=== PATIENT | female | born 1990 | race African-American/Black ===

== ENCOUNTER 2017-02-28 22:09 | Emergency (ER) | payer SELFPAY ==
[~2017-02-28] VITALS: Ht 162.6 cm; Wt 75.0 kg
[~2017-02-28 22:09] MED LIST: IBUP600 PO; PREN1CAP3 PO
[2017-02-28 22:10] VITALS: BP 127/63; PULSE 90; RESP 16; TEMP 99.8; O2SAT 100
--- NOTE | 2017-02-28 23:15 | PD ---
HPI Chief Complaint: Fever Time Seen by Provider: 23:15 Travel History International Travel<30 days: No Contact w/Intl Traveler<30days: No Traveled to known affect area: No History of Present Illness HPI 26-year-old female came to the emergency room with history of fever, nausea and vomiting since this morning. Patient says she vomited 6-7 times. The last vomitus was half an hour ago before coming to the hospital. No history of diarrhea. Her temperature in triage was 99. Patient did not take any antipyretics before coming in. She is otherwise a healthy person. FORMERLY [facility], [facility] Past Medical History Narrative Medical List of her past medical, surgical, social and family history is reviewed from the nursing note. Medical History: Denies Significant Hx Diminished Hearing: No Immunizations Current: Yes Tetanus Vaccination: < 5 Years Influenza Vaccination: Yes ?: Not LMP: 02/28/17 : 2 Para: 2 Miscarriage: 0 : 0 Past Surgical History Surgical History: No Previous Surgery Social History Alcohol Use: Yes ([facility]) Tobacco Use: Yes Substance Use: No Allergies-Medications (Allergen,Severity, Reaction): Uncoded Allergies: CITRUS FRUIT (Allergy, Severe, ANAPHYLAXIS, 08/07/09) Comments List of her allergies reviewed from the nursing note. Reported Meds & Prescriptions Reported Meds & Active Scripts Active Zofran Odt (Ondansetron Odt) 4 Mg Tab 4 Mg SL Q6HR PRN Macrobid (Nitrofurantoin Monoh/Nitrofur Macro) 100 Mg Cap 100 Mg PO BID 10 Days Narrative Medication List of her home medications reviewed from the nursing note. Review of Systems Except as stated in HPI: all other systems reviewed are Neg Physical Exam Narrative GENERAL: Awake, alert, moderate distress SKIN: Focused skin assessment warm/dry. HEAD: Atraumatic. Normocephalic. EYES: Pupils equal and round. No scleral icterus. No injection or drainage. ENT: No nasal bleeding or discharge. Mucous membranes pink and moist. NECK: Trachea midline. No JVD. CARDIOVASCULAR: Regular rate and rhythm. No murmur appreciated. RESPIRATORY: No accessory muscle use. Clear to auscultation. Breath sounds equal bilaterally. GASTROINTESTINAL: Abdomen soft, non-tender, nondistended. Hepatic and splenic margins not palpable. MUSCULOSKELETAL: No obvious deformities. No clubbing. No cyanosis. No edema. NEUROLOGICAL: Awake and alert. No obvious cranial nerve deficits. Motor grossly within normal limits. Normal speech. PSYCHIATRIC: Appropriate mood and affect; insight and judgment normal. Data Data Last Documented VS Vital Signs Date Time Temp Pulse Resp B/P Pulse Ox O2 Delivery O2 Flow Rate FiO2 03/01/17 00:45 Room Air 02/28/17 23:16 97 02/28/17 22:10 99.8 90 16 127/63 Orders Complete Blood Count With Diff (02/28/17 23:18) Comprehensive Metabolic Panel (02/28/17 23:18) Lipase (02/28/17 23:18) Urinalysis - C+S If Indicated (02/28/17 23:18) Iv Access Insert/Monitor (02/28/17:18) Ecg Monitoring (02/28/17:18) Oximetry (02/28/17 23:18) Ondansetron Inj (Zofran Inj) (02/28/17 23:30) Sodium Chlor 0.9% 1000 Ml Inj (Ns 1000 M (02/28/17 23:18) Sodium Chloride 0.9% Flush (Ns Flush) (02/28/17 23:30) Ed Urine Pregnancytest Poc (02/28/17 23:18) Urine Culture (02/28/17 23:43) Nitrofurantoin Monohyd Macrocr (Macrobid (03/01/17 00:15) Labs Laboratory Tests Test 02/28/17 23:43 White Blood Count 9.8 TH/MM3 Red Blood Count 5.19 MIL/MM3 Hemoglobin 9.6 GM/DL Hematocrit 31.3 % Mean Corpuscular Volume 60.2 FL Mean Corpuscular Hemoglobin 18.5 PG Mean Corpuscular Hemoglobin 30.8 % Concent Red Cell Distribution Width 17.9 % Platelet Count 336 TH/MM3 Mean Platelet Volume 9.8 FL Neutrophils (%) (Auto) 80.4 % Lymphocytes (%) (Auto) 13.6 % Monocytes (%) (Auto) 5.4 % Eosinophils (%) (Auto) 0.2 % Basophils (%) (Auto) 0.4 % Neutrophils # (Auto) 7.9 TH/MM3 Lymphocytes # (Auto) 1.3 TH/MM3 Monocytes # (Auto) 0.5 TH/MM3 Eosinophils # (Auto) 0.0 TH/MM3 Basophils # (Auto) 0.0 TH/MM3 CBC Comment DIFF FINAL Differential Comment Urine Color YELLOW Urine Turbidity HAZY Urine pH 6.0 Urine Specific [place] 1.032 Urine Protein 30 mg/dL Urine Glucose (UA) NEG mg/dL Urine Ketones 40 mg/dL Urine Occult Blood NEG Urine Nitrite NEG Urine Bilirubin NEG Urine Urobilinogen 2.0 MG/DL Urine Leukocyte Esterase LARGE Urine RBC 3 /hpf Urine WBC 23 /hpf Urine Squamous Epithelial 8 /hpf Cells Urine Transitional Epithelial <1 /hpf Cells Urine Mucus MANY /lpf Microscopic Urinalysis Comment CULTURE INDICATED Sodium Level 135 MEQ/L Potassium Level 3.6 MEQ/L Chloride Level 104 MEQ/L Carbon Dioxide Level 21.4 MEQ/L Anion Gap 10 MEQ/L Blood Urea Nitrogen 11 MG/DL Creatinine 0.87 MG/DL Estimat Glomerular Filtration 96 ML/MIN Rate Random Glucose 102 MG/DL Calcium Level 8.5 MG/DL Total Bilirubin 0.4 MG/DL Aspartate Amino Transf 18 U/L (AST/SGOT) Alanine Aminotransferase 16 U/L (ALT/SGPT) Alkaline Phosphatase 75 U/L Total Protein 8.0 GM/DL Albumin 3.5 GM/DL Lipase 92 U/L [facility] Medical Decision Making Medical Screen Exam Complete: Yes Emergency Medical Condition: Yes Medical Record Reviewed: Yes Differential Diagnosis Acute gastritis, viral illness, UTI, dehydration Narrative Course 12:50 AM the test results of back and they are within acceptable limits. UA is positive for UTI. Patient was given IV fluid bolus and IV Zofran. I have given her by mouth Macrobid as well. She will be discharged home on prescription for Zofran and Macrobid. Procedures EKG Prior to Arrival: No Diagnosis Primary Impression: UTI (urinary tract infection) Qualified Code: N39.0 - Urinary tract infection without hematuria, site unspecified Additional Impression: Vomiting Qualified Code: R11.2 - Nausea and vomiting, intractability of vomiting not specified, unspecified vomiting type Referrals: Primary Care Physician Additional Instructions: Please return to the ER if the condition worsens or any other new concerns. Otherwise follow-up with your primary care in couple days. Take the medications as per the prescription direction. Drink lots of fluid to keep yourself hydrated. Med/Other Pt SpecificInfo: Prescription(s) given Scripts Ondansetron Odt (Zofran Odt)4 Mg Tab4 Mg SL Q6HR PRN (Nausea/Vomiting) #15 TAB Ref 0 Prov:Jose Elias Foss MD 03/01/17 Nitrofurantoin Monohydrate Macrocrystals (Macrobid)100 Mg [id number] Mg PO BID 10 Days Ref 0 Prov:Jose Elias Foss MD 03/01/17 Disposition: 01 DISCHARGE HOME Condition: Stable Jose Elias Foss MD Feb 28, 2017 23:15 Jose Elias Foss MD Feb 28, 2017 23:15
[2017-02-28] MEDS ORDERED: SODIUM CHLOR 0.9% 1000 ML INJ 1,000 ML IV SCH (23:18)
[2017-02-28] MEDS ORDERED: ONDANSETRON HCL 4 MG/2 ML VIAL IVP ONE (23:30)
[2017-02-28] MEDS ORDERED: SODIUM CHLORIDE 0.9% FLUSH 10 ML FLUSH IV FLUSH PRN (23:30)
[2017-02-28 23:55] LABS: AUTOMATED NEUTROPHIL # 7.9 TH/MM3 (1.8-7.7); BASOPHIL % 0.4 % (0.0-2.0); EOSINOPHIL % 0.2 % (0.0-4.0); HEMATOCRIT 31.3 % (35.0-46.0); HEMO FLAGS DIFF FINAL; LYMPH % 13.6 % (9.0-44.0); LYMPHOCYTE # 1.3 TH/MM3 (1.0-4.8); MEAN CELL VOLUME 60.2 FL (80.0-100.0); MEAN CORPUSCULAR HEMOGLOBIN 18.5 PG (27.0-34.0); MEAN CORPUSCULAR HGB CONC 30.8 % (32.0-36.0); MONO % 5.4 % (0.0-8.0); NEUT % 80.4 % (16.0-70.0); PLATELET COUNT 336 TH/MM3 (150-450); RED BLOOD COUNT 5.19 MIL/MM3 (4.00-5.30); RED CELL DISTRIBUTION WIDTH 17.9 % (11.6-17.2); WHITE BLOOD COUNT 9.8 TH/MM3 (4.0-11.0)
[2017-02-28 23:56] LABS: BLOOD, URINE NEG (NEG); COMMENT (UR) CULTURE INDICATED; CULTURE IF INDICATED CULTURE INDICATED; GLUCOSE,URINE NEG (NEG); KETONE, URINE 40 mg/dL (NEG); MUCUS URINE MANY /lpf (OCC); NITRITE,URINE NEG (NEG); SQUAMOUS EPITHELIAL CELL URINE 8 /hpf (0-5); TRANSITIONAL EPI CELLS, URINE <1 /hpf; URINE COLOR YELLOW (YELLW/STRAW)
[2017-03-01 00:07] LABS: ANION GAP 10 MEQ/L (5-15); AST (GOT) 18 U/L (15-37); BICARBONATE 21.4 MEQ/L (21.0-32.0); BLOOD UREA NITROGEN 11 MG/DL (7-18); CHLORIDE 104 MEQ/L (98-107); GLOMERULAR FILTRATION RATE 96 ML/MIN (>89); POTASSIUM 3.6 MEQ/L (3.5-5.1); SODIUM (NA) 135 MEQ/L (136-145)
[2017-03-01 00:09] LABS: ALT (GPT) 16 U/L (10-53)
[2017-03-01 00:12] LABS: ALKALINE PHOSPHATASE 75 U/L (45-117); TOTAL BILIRUBIN ADULT 0.4 MG/DL (0.2-1.0)
[2017-03-01] MEDS ORDERED: NITROFURANTOIN MONOHYD MACROCR 100 MG CAP PO ONE (00:15)
[2017-03-01] MEDS ORDERED: MACR100C2 PO (00:52)
[2017-03-01] MEDS ORDERED: ZOFR4TAB3 SL (00:52)
== END 2017-03-01 02:18 | disposition home or self-care (01) ==
LOC: NEPE 22:09
DX: N39.0 Urinary tract infection, site not specified (principal); R11.2 Nausea with vomiting, unspecified; Z79.899 Other long term (current) drug therapy; Z72.0 Tobacco use
CPT/HCPCS: 80053; 81001; 83690; 84703; 85025; 87086; 96361; 96374; 99284; J2405; J7030

== ENCOUNTER 2017-03-18 19:08 | Emergency (ER) | payer SELFPAY ==
[~2017-03-18 19:08] MED LIST changes: -IBUP600 PO; +MACR100C2 PO; -PREN1CAP3 PO; +ZOFR4TAB3 SL
[2017-03-18 19:09] VITALS: BP 116/55; PULSE 93; RESP 15; TEMP 101; O2SAT 98
[2017-03-18] MEDS ORDERED: PENI500T PO (19:52)
--- NOTE | 2017-03-18 19:53 | PD ---
HPI Chief Complaint: ENT Complaint Time Seen by Provider: 19:49 Travel History International Travel<30 days: No Contact w/Intl Traveler<30days: No Traveled to known affect area: No History of Present Illness HPI 26-year-old female presents to the emergency department for evaluation of sore throat and fever that started yesterday morning. Her daughter was seen here pediatrics and was diagnosed with strep pharyngitis. She has the same symptoms. The patient has not taken anything for her fever. She denies any chest or shortness of breath. No abdominal pain. No diarrhea. She reports no chronic medical problems and takes no prescribed medications. Patient has no other complaints at this time. [facility] Past Medical History Medical History: Denies Significant Hx Diminished Hearing: No Immunizations Current: Yes ?: Not : 2 Para: 2 Miscarriage: 0 : 0 Past Surgical History Surgical History: No Previous Surgery Social History Alcohol Use: Yes (OCC) Tobacco Use: Yes Substance Use: No Allergies-Medications (Allergen,Severity, Reaction): Uncoded Allergies: CITRUS FRUIT (Allergy, Severe, ANAPHYLAXIS, 08/07/09) Reported Meds & Prescriptions Reported Meds & Active Scripts Active Review of Systems Except as stated in HPI: all other systems reviewed are Neg Physical Exam Narrative GENERAL: Well-nourished, well-developed female patient, ambulatory. Afebrile. SKIN: Focused skin assessment warm/dry. HEAD: Normocephalic. Atraumatic. ENT: Mucosa pink and moist. Bilateral tonsils are erythematous with exudates. No uvular edema. No uvular, palatal, or tonsillar deviation. Airway patent. Nasal turbinates appear normal without nasal blood, purulent drainage or septal hematoma. Bilateral tympanic membranes are clear without erythema or perforation. EYES: No scleral icterus. No injection or drainage. NECK: Supple, trachea midline. No JVD or lymphadenopathy. CARDIOVASCULAR: Regular rate and rhythm without murmurs, gallops, or rubs. RESPIRATORY: Breath sounds equal bilaterally. No accessory muscle use. Lungs sounds are clear to auscultation. GASTROINTESTINAL: Abdomen soft, non-tender, nondistended. MUSCULOSKELETAL: No cyanosis, or edema. BACK: Nontender without obvious deformity. No CVA tenderness. Data Data Last Documented VS Vital Signs Date Time Temp Pulse Resp B/P Pulse Ox O2 Delivery O2 Flow Rate FiO2 03/18/17 19:09 101.0 93 15 116/55 98 Room Air [facility] Medical Decision Making Medical Screen Exam Complete: Yes Emergency Medical Condition: Yes Medical Record Reviewed: Yes Differential Diagnosis Strep pharyngitis versus viral pharyngitis versus URI Narrative Course 26-year-old female presents to the emergency department for evaluation of sore throat and fever that started yesterday morning. Her daughter was just seen in pediatrics and diagnosed with strep pharyngitis. She has the same symptoms. Patient is given ibuprofen 600 mg by mouth and Pen-Vee K 500 mg by mouth tablet. She will be discharged prescription for pen VK. She is instructed to take Tylenol and ibuprofen [id number] as needed and to warm somewhat water gargles. She is to follow-up with a primary care physician or return for any acute worsening of symptoms. Patient verbalizes agreement and understanding. The patient was discharged in stable condition with instructions, including return instructions and follow up instructions. Diagnosis Primary Impression: Exudative pharyngitis Referrals: Primary Care Physician call for appointment Patient Instructions: General Instructions, Pharyngitis (ED) Additional Instructions: Take antibiotic as directed until gone. This is free at [facility]. [id number] Tylenol every 4 hours as needed for fever, pain. Over-the- counter ibuprofen every 6-8 hours as needed for fever, pain. Warm saltwater gargles. Follow-up with your primary care physician. Return to the emergency department for any acute worsening of symptoms. Med/Other Pt SpecificInfo: Prescription(s) given Scripts Penicillin V Potassium 500 Mg [id number] Mg PO Q8H 10 Days Ref 0 Prov:Holly Rodriguez 03/18/17 Disposition: 01 DISCHARGE HOME Condition: Stable Holly Rodriguez Mar 18, 2017 19:53
[2017-03-18] MEDS ORDERED: IBUPROFEN 600 MG TAB PO ONE (20:00)
[2017-03-18] MEDS ORDERED: PENICILLIN V POTASSIUM 500 MG TAB PO ONE (20:00)
== END 2017-03-18 20:56 | disposition home or self-care (01) ==
LOC: NEPA 19:08
DX: J02.9 Acute pharyngitis, unspecified (principal); Z72.0 Tobacco use
CPT/HCPCS: 99283

== ENCOUNTER 2017-10-27 19:17 | Emergency (ER) | payer SELFPAY ==
[~2017-10-27] VITALS: Ht 162.6 cm; Wt 69.1 kg
[~2017-10-27 19:17] MED LIST changes: -MACR100C2 PO; +PENI500T PO; -ZOFR4TAB3 SL
[2017-10-27 19:25] VITALS: BP 139/69; PULSE 75; RESP 18; TEMP 99.4; O2SAT 100
[2017-10-27] MEDS ORDERED: PENI500T PO (20:21)
--- NOTE | 2017-10-27 20:21 | PD ---
HPI Chief Complaint: Oral / Dental Pain or Problem Time Seen by Provider: 20:01 Travel History International Travel<30 days: No Contact w/Intl Traveler<30days: No Traveled to known affect area: No History of Present Illness HPI This is a 26-year-old female here with right sided dental pain 2 days. She reports she has a decayed tooth at the site of the pain. No fever or chills. Severity is mild. Aggravated by hot/cold fluids and showing. No alleviating factors. Patient reports she took 2 home tests today. She denies any abdominal pain, vaginal bleeding, vaginal discharge. PFSH Past Medical History Medical History: Denies Significant Hx Diminished Hearing: No Immunizations Current: Yes Tetanus Vaccination: < 5 Years Influenza Vaccination: No ?: LMP: 09/19/17 : 2 Para: 2 Miscarriage: 0 : 0 Past Surgical History Surgical History: No Previous Surgery Social History Alcohol Use: No Tobacco Use: No Substance Use: No Allergies-Medications (Allergen,Severity, Reaction): Uncoded Allergies: CITRUS FRUIT (Allergy, Severe, ANAPHYLAXIS, 08/07/09) Reported Meds & Prescriptions Reported Meds & Active Scripts Active Penicillin V Potassium 500 Mg Tab 500 Mg PO Q8H 10 Days Review of Systems Except as stated in HPI: all other systems reviewed are Neg General / Constitutional: No: Fever Eyes: No: Visual changes HENT: Positive: Dental Difficulties Cardiovascular: No: Chest Pain or Discomfort Respiratory: No: Shortness of Breath Gastrointestinal: No: Abdominal Pain Genitourinary: No: Dysuria Musculoskeletal: No: Pain Skin: No Rash Neurologic: No: Weakness Physical Exam Narrative GENERAL: Alert well-appearing 26-year-old female SKIN: Warm and dry. HEAD: Normocephalic. EYES: No injection or drainage. MOUTH: Patient points to the right upper first molar as the source of the pain. Mild gum erythema surrounding tooth. No discernible abscess. Uvula is midline. Airway is patent NECK: Supple GASTROINTESTINAL: Abdomen soft, non-tender, nondistended. Data Data Last Documented VS Vital Signs Date Time Temp Pulse Resp B/P (MAP) Pulse Ox O2 Delivery O2 Flow Rate FiO2 10/27/17 19:25 99.4 75 18 139/69 (92) 100 MDM Medical Decision Making Medical Screen Exam Complete: Yes Emergency Medical Condition: Yes Differential Diagnosis Dental abscess, dental caries, dentalgia Narrative Course 26-year-old female here with dental pain. She is nontoxic appearing. She was treated with penicillin. She was told to follow-up with her dentist Diagnosis Primary Impression: Dentalgia Referrals: Dentist Additional Instructions: Tylenol as needed for pain. Antibiotics as directed. Follow-up with her dentist Scripts Penicillin V Potassium (Penicillin V Potassium) 500 Mg Tab 500 MG PO Q6H for Infection for 7 Days, #28 TAB 0 Refills Prov: Suad Alvarez 10/27/17 Disposition: 01 DISCHARGE HOME Condition: Stable Suad Alvarez Oct 27, 2017 20:21
[2017-10-27] MEDS ORDERED: ACETAMINOPHEN 500 MG CPLT PO ONE (20:45)
== END 2017-10-27 20:47 | disposition home or self-care (01) ==
LOC: PHEFT 19:17
DX: O99.619 Diseases of the digestive system complicating pregnancy, unspecified trimester (principal); K08.89 Other specified disorders of teeth and supporting structures; Z3A.00 Weeks of gestation of pregnancy not specified
CPT/HCPCS: 99283

== ENCOUNTER 2018-06-24 06:24 | Inpatient (IN) ==
[2018-06-24] MEDS ORDERED: ceFAZolin 2 GM Premix Inj 2 GM/50 ML PIGGYBACK IV.SIG PRN (08:20)
[2018-06-24] MEDS ORDERED: Citric Acid/Sodium Citrate Liq 30 ML UDC PO SCH (08:30)
[2018-06-24] MEDS ORDERED: Sodium Chlor 0.9% Inj 500 ML IV.SIG PRN (09:47)
[2018-06-24] MEDS ORDERED: Oxytocin 30 Units/500ml Premix 30 UNITS/500 ML BAG IV.SIG ONE (09:47)
[2018-06-24] MEDS ORDERED: Sod Chloride 0.9% Inj 1,000 ML IV.CONT PRN (09:47)
[2018-06-24] MEDS ORDERED: fentaNYL Citrate Inj 100 MCG/2 ML Ampul IV.PUSH PRN ×2 (09:47)
[2018-06-24] MEDS ORDERED: Naloxone Inj 0.4 MG/ML Vial IV.PUSH PRN ×2 (09:47→15:24)
--- NOTE | 2018-06-24 10:04 | P.OBGPN ---
Labor and Delivery H&P History of Present Illness Primary Care Physician: No Primary Care Physician Chief Complaint: ctx History of Present Illness: Pt is a 27y/o @ 39.4wks. She has PNC at [facility]. She presents to triage this morning with c/o ctx which are every 7-10m but becoming stronger. She reports that she goes quickly with her labors. No LOF or VB. + FM. OBHx: -- x2, no complications Weeks Gestation:: 39 Para: 2 : 3 Review of Systems All other systems reviewed negative except as stated in HPI PMFSH - Medical History Medical History: Medical History (Last Updated 06/24/18 @ 09:50 by Carmelo Lopez MD) Sickle cell trait - Social History I have reviewed the patient's Social History: Yes - Tobacco History Smoking Status: Never smoker - Alcohol History How Often Do You Have a Drink Containing Alcohol: Never - Substance Use History Substance History: No History of Abuse Medications and Allergies Active Medications: Active Medications Citric Acid/Sodium Citrate (Sodium Citrate/Citric Acid Liq) [address] TRAFFIC CONTROL TECHNICIAN TRACY Stop: 06/28/18 08:29 Cefazolin Sodium/Dextrose (Ancef 2 Gm Premix Inj) 2 gm in 50 mls @ 100 mls/hr IV.SIG [facility]HW[facility] TRAFFIC CONTROL TECHNICIAN PRN PRN Reason: surgery Stop: 06/28/18 08:19 Lactated Ringer's (Lr 1000 Ml Inj) 1,000 mls @ 150 mls/hr IV.CONT .Q6H40M TRACY Sodium Chloride (Ns Flush) 2 ml IV.FLUSH BID TRACY Sodium Chloride (Ns Flush) 2 ml IV.FLUSH PRN PRN PRN Reason: FLUSH AFTER USING IV ACCESS Allergies Allergy/AdvReac Type Severity Reaction Status Date / Time CITRUS FRUIT Allergy Severe ANAPHYLAXIS Uncoded 08/07/09 09:22 Exam Vital signs: Vital Signs 06/24/18 06:43 Temperature 98.6 F Pulse Rate 79 Respiratory Rate 18 Blood Pressure 129/68 Narrative: General: well developed, well nourished, no acute distress HEENT: normocephalic atraumatic, extraocular movements intact, neck supple Abdomen: soft, gravid, nontender, nondistended Uterus: fundus term Extremities: full range of motion Skin: normal coloration, no rashes, no suspicious skin lesions noted Neurologic: cranial nerves 2-12 grossly intact, normal muscle tone, normal gait Psychiatric: normal mood and affect, appropriate FHTs: 115, +accels, no decels, moderate variability reactive [place] Level: ctx q7-10m Cvx: 0.5/70/-3 --> 3/70/-2 Assessment and Plan - Diagnosis (1) 39 weeks gestation of Code(s): Z3A.39 - 39 weeks gestation of Status: Acute (2) Uterine contractions Status: Acute - Plan 27y/o @ 39.4wks in labor. -- FHTs cat 1 -- cvx changed in triage 0.5-->2cm -- admit to L&D -- GBS unknown, no risk factors Discharge Plan - Physicians Team ED Provider: Carmelo Lopez V Primary Care Provider: Primary Care Mariajose Luz - Discharge Instructions Print Language: Portuguese
[2018-06-24 11:12] LABS: Baso # (Auto) 0.1 th/mm3 (0.0-0.2); Baso % (Auto) 0.5 % (0.0-2.0); Eos # (Auto) 0.1 th/mm3 (0.0-0.4); Eos % (Auto) 0.8 % (0.0-4.0); Hematocrit 26.2 % (35.0-46.0); Hemoglobin 7.6 gm/dL (11.6-15.3); Lymph # (Auto) 2.3 th/mm3 (1.0-4.8); Lymph % (Auto) 18.8 % (9.0-44.0); Mean Corpuscular Hemoglobin 18.6 pg (27.0-34.0); Mean Corpuscular Volume 63.8 fL (80.0-100.0); Mean Platelet Volume 9.7 fL (7.0-11.0); Mono # (Auto) 0.6 th/mm3 (0.0-0.9); Mono % (Auto) 4.5 % (0.0-8.0); Neut # (Auto) 9.2 th/mm3 (1.8-7.7); Neut % (Auto) 75.4 % (16.0-70.0); Platelet Count 389 th/mm3 (150-450); Red Cell Distribution Width 20.4 % (11.6-17.2); White Blood Count 12.2 th/mm3 (4.0-11.0)
[2018-06-24 11:14] LABS: Mean Corpuscular HGB Conc 29.1 % (32.0-36.0)
[2018-06-24 11:17] LABS: Bilirubin,Urine Negative (Negative); Clarity,Urine Hazy (Clear); Color,Urine Yellow (Yellw/Straw); Glucose,Urine (UA) Negative (Negative); Leukocyte Esterase,Urine Large (Negative); Mucus,Urine Few /lpf (Occasional); Nitrite,Urine Negative (Negative); Specific Gravity,Urine 1.026 (1.002-1.035); Squamous Epithelial Cell,Urine 4 /hpf (0-5); Urobilinogen,Urine 4 or Greater mg/dL (Less than 2)
[2018-06-24 11:29] LABS: Amphetamine Urine With Conf Neg (Neg); Benzodiazepine Urine With Conf Neg (Neg)
[2018-06-24] MEDS ORDERED: fentaNYL 2MCG-Bupiv 0.125% Epi 150 ML EPIDURAL ONE (12:24)
[2018-06-24] MEDS ORDERED: Lidocaine PF 1% Inj 5 ML Vial ONE (12:29)
[2018-06-24] MEDS ORDERED: Lidocaaine 1.5%/Epinephrine 1:200,000 PF Inj 5 ML Amp ONE (12:29)
[2018-06-24] MEDS ORDERED: fentaNYL Citrate Inj 100 MCG/2 ML Ampul EPIDURAL ONE (13:30)
[2018-06-24] MEDS ORDERED: fentaNYL 2MCG-Bupiv 0.125% Epi 150 ML EPIDURAL PRN (13:30)
--- NOTE | 2018-06-24 15:21 | P.OBDELI ---
Weeks Gestation: 39 Patient Started Active Labor: Yes Active Labor Start Date: 06/24/18 Active Labor Start Time: 10:00 Medical Induction of Labor: No Artificial Rupture of Membrane: No Anesthesia: Epidural Episiotomy: none Vaginal Delivery: Normal, Spontaneous Presentation: Occiput anterior Nuchal Cord: None Delayed Cord Clamping (45 sec): Yes Placenta: Spontaneous delivery, 3 vessel cord Laceration: None Estimated blood loss (mL): 150 : Female Infant Female A Delivery Date: 06/24/18 Delivery Time: 14:46 Weight: 2740 kg score (1 min): 9 score (5 min): 9
[2018-06-24] MEDS ORDERED: Oxytocin 30 Units/500ml Premix 30 UNITS/500 ML BAG IV.CONT PRN (15:24)
[2018-06-24] MEDS ORDERED: Witch Hazel 50%/Glyderin 12.5% 40 Pad Jar RECTAL PRN (15:24)
[2018-06-24] MEDS ORDERED: Bisacodyl 10 MG Supp RECTAL PRN (15:24)
[2018-06-24] MEDS ORDERED: Benzocaine 20% Top Spray 60 ML Can TOPICAL PRN (15:24)
[2018-06-24] MEDS ORDERED: Zolpidem Tartrate 5 MG Tablet PO PRN (15:24)
[2018-06-24] MEDS ORDERED: Measles/Mumps/Rubella Vaccine Inj 0.5 ML Vial SQ ONE (16:00)
[2018-06-24] MEDS ORDERED: Diphtheria/Tetanus/Pertussis Vaccine Inj 0.5 ML Syringe IM ONE (16:00)
[2018-06-24 19:52] LABS: Hepatitis A IgM Antibody Nonreactive (Nonreactive); Hepatitits B Surface Antigen Nonreactive (Nonreactive)
[2018-06-24] MEDS: Senna/Docusate Sodium 8.6/50 MG Tablet PO SCH (20:30)
--- NOTE | 2018-06-25 09:45 | P.PNOB ---
Subjective Post day: 1 Interval history: day # 1. AFVSS overnight. Pain well-controlled. Decreased lochia. Denies dysuria. No breast tenderness. She is feeding the baby via bottle/will try breast again. Appetite good. No nausea or vomiting. + flatus. no bowel movement. Ambulating well. Denies calf pain, shortness of breath, or cough. Otherwise, she is doing well this morning and has no other complaints. Objective Vital Signs/I&O: Vital Signs 06/24/18 12:33 06/24/18 12:44 06/24/18 12:45 Temperature Pulse Rate 75 76 77 Respiratory Rate 18 Blood Pressure 133/75 136/83 124/75 06/24/18 12:50 06/24/18 12:53 06/24/18 13:25 Temperature Pulse Rate 79 79 86 Respiratory Rate 18 Blood Pressure 132/66 160/60 H 137/65 06/24/18 13:39 06/24/18 13:47 06/24/18 14:25 Temperature 98.0 F Pulse Rate 71 71 70 Respiratory Rate 18 18 Blood Pressure 113/96 H 128/69 135/67 06/24/18 14:40 06/24/18 15:00 06/24/18 15:05 Temperature Pulse Rate 75 81 83 Respiratory Rate 18 18 Blood Pressure 134/87 142/73 H 111/80 06/24/18 15:20 06/24/18 15:34 06/24/18 15:35 Temperature 97.5 F L Pulse Rate 84 73 Respiratory Rate 18 18 Blood Pressure 101/61 121/61 06/24/18 15:45 06/24/18 16:50 06/24/18 19:17 Temperature 97.9 F 97.8 F Pulse Rate 70 70 79 Respiratory Rate 20 20 Blood Pressure 126/56 L 127/75 136/85 06/24/18 19:22 06/25/18 08:00 Temperature 98.2 F Pulse Rate 77 Respiratory Rate 16 Blood Pressure 129/69 120/70 Intake & Output 06/24/18 06/25/18 06/25/18 19:59 06:59 18:59 Intake Total Balance Weight Intake: IV LR 1000 mL Inj 1,000 ML @ 3000 mls/hr IV.SIG UNSCH PRN Rx#: [id number] Ancef 2 GM Premix Inj 2 gm In 50 ml @ 100 mls/hr IV.SIG GAMING HOST PRN Rx#:[id number] Result Diagrams: 06/24/18 10:30 Objective Remarks: GENERAL: Well-nourished, well-developed patient. CARDIOVASCULAR: Regular rate and rhythm without murmurs, gallops, or rubs. RESPIRATORY: Breath sounds equal bilaterally. No accessory muscle use. ABDOMEN/GI: Abdomen soft, non-tender. Fundus: Firm, non-tender at umbilicus. GENITOURINARY: Light to moderate bleeding. EXTREMITIES: No cyanosis or edema, non-tender, without signs of DVT. Medications and IVs: Active Medications Acetaminophen (Tylenol) 650 mg PO Q4H PRN PRN Reason: PAIN SCALE 1 TO 2 Al Hydroxide/Mg Hydroxide (Milk Of Magnesia Liq) 30 ml PO Q12H PRN PRN Reason: Mild Constipation Benzocaine (Americaine 20% [place]) 1 spray TOPICAL Q4H PRN PRN Reason: For Perineum Discomfort Bisacodyl (Dulcolax Supp) 10 mg RECTAL DAILY PRN PRN Reason: SEVERE CONSITIPATION Citric Acid/Sodium Citrate (Sodium Citrate/Citric Acid Liq) 30 ml PO GAMING HOST TRACY Stop: 06/28/18 08:29 Last Admin: 06/24/18 09:02 Dose: 30 ml Ephedrine Sulfate (Ephedrine/Ns Syringe) 10 mg IV.PUSH UNSCH PRN PRN Reason: SEE LABEL COMMENTS Stop: 06/25/18 13:13 Last Admin: 06/24/18 15:17 Dose: 10 mg Fentanyl Citrate (Fentanyl Inj) 50 mcg IV.PUSH Q1H PRN PRN Reason: Pain Scale 3 - 5 Fentanyl Citrate (Fentanyl Inj) 100 mcg IV.PUSH Q1H PRN PRN Reason: PAIN SCALE 6 TO 10 Cefazolin Sodium/Dextrose (Ancef 2 Gm Premix Inj) 2 gm in 50 mls @ 100 mls/hr IV.SIG GAMING HOST PRN PRN Reason: surgery Stop: 06/28/18 08:19 Last Infusion: 06/24/18 15:19 Dose: 0 mls/hr Lactated Ringer's (Lr 1000 Ml Inj) 1,000 mls @ 3,000 mls/hr IV.SIG UNSCH PRN PRN Reason: compromise or epidural Last Infusion: 06/24/18 15:20 Dose: Infused Lactated Ringer's (Lr 1000 Ml Inj) 1,000 mls @ 125 mls/hr IV.CONT .Q8H TRACY Last Admin: 06/25/18 04:37 Dose: Not Given Sodium Chloride (Ns Inj) 500 mls @ 1,000 mls/hr IV.SIG UNSCH PRN PRN Reason: SEE LABEL COMMENTS Sodium Chloride (Ns Inj) 1,000 mls @ 100 mls/hr IV.CONT .Q10H PRN PRN Reason: SEE LABEL COMMENTS Fentanyl/Bupivacaine/Sodium Chlor (Fentanyl 2 Mcg-Bupiv 0.125% Epi) 150 mls @ 12 mls/hr EPIDURAL PRN PRN PRN Reason: for Labor Pain Last Admin: 06/24/18 12:45 Dose: 12 mls/hr Oxytocin (Pitocin 30 Units/Ns 500 Ml Premix) 30 units in 500 mls @ 100 mls/hr IV.CONT UNSCH PRN PRN Reason: Heavy bleeding Ibuprofen (Motrin) 800 mg PO Q8H PRN PRN Reason: For Cramping Last Admin: 06/25/18 04:28 Dose: 800 mg Lactulose (Lactulose Liq) 30 ml PO DAILY PRN PRN Reason: SEVERE CONSITIPATION Lidocaine HCl (Xylocaine 1% Inj) 0.1 ml I-DERMAL PRN PRN PRN Reason: For IV start Stop: 06/27/18 09:46 Lidocaine HCl (Xylocaine 1% Inj) 10 ml INFILTRATN PRN PRN PRN Reason: For episiotomy repair Stop: 06/26/18 09:46 Mineral Oil (Muri-Lube Oil) 10 ml TOPICAL PRN PRN PRN Reason: PRN perineal massage Miscellaneous Information (Misc Information) 1 each OTHER UNSCH PRN PRN Reason: SEE LABEL COMMENTS Stop: 06/25/18 13:13 Miscellaneous Information (Misc Information) 1 each OTHER UNSCH PRN PRN Reason: SEE LABEL COMMENTS Stop: 06/25/18 13:13 Naloxone HCl (Narcan Inj) 0.1 mg IV.PUSH Q2M PRN PRN Reason: for opiate reversal Ondansetron HCl (Zofran Inj) 4 mg IV.PUSH Q6H PRN PRN Reason: NAUSEA OR VOMITING Last Admin: 06/24/18 10:00 Dose: 4 mg Ondansetron HCl (Zofran Odt) 4 mg PO Q6H PRN PRN Reason: NAUSEA OR VOMITING Senna/Docusate Sodium (Twila-Colace) 1 tab PO BID REPLACED BY [facility] Last Admin: 06/24/18 20:30 Dose: 1 tab Sennosides (Senokot) 17.2 mg PO Q12H PRN PRN Reason: Moderate Constipation Sodium Chloride (Ns Flush) 2 ml IV.FLUSH BID REPLACED BY [facility] Last Admin: 06/25/18 04:36 Dose: Not Given Sodium Chloride (Ns Flush) 2 ml IV.FLUSH PRN PRN PRN Reason: FLUSH AFTER USING IV ACCESS Sodium Chloride (Ns Flush) 2 ml IV.FLUSH BID REPLACED BY [facility] Last Admin: 06/25/18 04:36 Dose: Not Given Sodium Chloride (Ns Flush) 2 ml IV.FLUSH PRN PRN PRN Reason: FLUSH AFTER USING IV ACCESS Witch Kimmy/Glycerin (Tucks Pads) 1 applicatio RECTAL QID PRN PRN Reason: HEMORRHOIDS Zolpidem Tartrate (Ambien) 5 mg PO HS PRN PRN Reason: SLEEP Assessment and Plan - Diagnosis (1) Vaginal delivery Code(s): O80 - Encounter for full-term uncomplicated delivery Status: Acute Plan: 27 y/o who is PPD# 1 s/p . -Continue routine care. -Percocet and Motrin PRN pain. -Encouraged OOB. Advised pelvic rest for 6 wks. -Will need a f/u appt. within 6 wks. -Re: ctrl, she would like to consider her options. -D/c tomorrow. renetta Hernandez
[2018-06-25] MEDS: Acetaminophen 325 MG Tablet PO PRN ×2 (12:09→21:23)
[2018-06-25] MEDS: Senna/Docusate Sodium 8.6/50 MG Tablet PO SCH ×2 (12:09→21:23)
--- NOTE | 2018-06-26 08:20 | P.PNOB ---
Subjective Post day: 2 Interval history: day # 2. AFVSS overnight. Pain well-controlled. Decreased lochia. Denies dysuria. No breast tenderness. She is feeding the baby via bottle. Appetite good. No nausea or vomiting. + flatus. one bowel movement. Ambulating well. Denies calf pain, shortness of breath, or cough. Otherwise, she is doing well this morning. Patient states that last night she started having chest pain. Described it as a pressure-like pain in the middle to the left side of her chest. She felt that it was from gas. She felt like something was stuck in her chest so she drank a lot of water. No associated shortness of breath. Worse with laying down. Objective Vital Signs/I&O: Vital Signs 06/25/18 19:30 06/26/18 07:15 Temperature 98.0 F 98.9 F Pulse Rate 80 75 Respiratory Rate 16 20 Blood Pressure 121/63 128/74 Result Diagrams: 06/24/18 10:30 Objective Remarks: GENERAL: Well-nourished, well-developed patient. CARDIOVASCULAR: Regular rate and rhythm without murmurs, gallops, or rubs. RESPIRATORY: Breath sounds equal bilaterally. No accessory muscle use. ABDOMEN/GI: Abdomen soft, non-tender. Fundus: Firm, non-tender at umbilicus. GENITOURINARY: Light to moderate bleeding. EXTREMITIES: No cyanosis or edema, non-tender, without signs of DVT. Medications and IVs: Active Medications Acetaminophen (Tylenol) 650 mg PO Q4H PRN PRN Reason: PAIN SCALE 1 TO 2 Last Admin: 06/25/18 21:23 Dose: 650 mg Al Hydrox/Mg Hydrox/Simethicone (Mag-Al Plus Susp Liq) 30 ml PO ONCE ONE Stop: 06/26/18 08:07 Al Hydroxide/Mg Hydroxide (Milk Of Magnesia Liq) 30 ml PO Q12H PRN PRN Reason: Mild Constipation Benzocaine (Americaine 20% Top [place]) 1 spray TOPICAL Q4H PRN PRN Reason: For Perineum Discomfort Bisacodyl (Dulcolax Supp) 10 mg RECTAL DAILY PRN PRN Reason: SEVERE CONSITIPATION Citric Acid/Sodium Citrate (Sodium Citrate/Citric Acid Liq) 30 ml PO WELDER/FABRICATOR TRACY Stop: 06/28/18 08:29 Last Admin: 06/24/18 09:02 Dose: 30 ml Fentanyl Citrate (Fentanyl Inj) 50 mcg IV.PUSH Q1H PRN PRN Reason: Pain Scale 3 - 5 Fentanyl Citrate (Fentanyl Inj) 100 mcg IV.PUSH Q1H PRN PRN Reason: PAIN SCALE 6 TO 10 Cefazolin Sodium/Dextrose (Ancef 2 Gm Premix Inj) 2 gm in 50 mls @ 100 mls/hr IV.SIG WELDER/FABRICATOR PRN PRN Reason: surgery Stop: 06/28/18 08:19 Last Infusion: 06/24/18 15:19 Dose: 0 mls/hr Lactated Ringer's (Lr 1000 Ml Inj) 1,000 mls @ 3,000 mls/hr IV.SIG UNSCH PRN PRN Reason: compromise or epidural Last Infusion: 06/24/18 15:20 Dose: Infused Lactated Ringer's (Lr 1000 Ml Inj) 1,000 mls @ 125 mls/hr IV.CONT .Q8H TRACY Last Admin: 06/26/18 07:10 Dose: Not Given Sodium Chloride (Ns Inj) 500 mls @ 1,000 mls/hr IV.SIG UNSCH PRN PRN Reason: SEE LABEL COMMENTS Sodium Chloride (Ns Inj) 1,000 mls @ 100 mls/hr IV.CONT .Q10H PRN PRN Reason: SEE LABEL COMMENTS Fentanyl/Bupivacaine/Sodium Chlor (Fentanyl 2 Mcg-Bupiv 0.125% Epi) 150 mls @ 12 mls/hr EPIDURAL PRN PRN PRN Reason: for Labor Pain Last Admin: 06/24/18 12:45 Dose: 12 mls/hr Oxytocin (Pitocin 30 Units/Ns 500 Ml Premix) 30 units in 500 mls @ 100 mls/hr IV.CONT UNSCH PRN PRN Reason: Heavy bleeding Ibuprofen (Motrin) 800 mg PO Q8H PRN PRN Reason: For Cramping Last Admin: 06/25/18 21:23 Dose: 800 mg Lactulose (Lactulose Liq) 30 ml PO DAILY PRN PRN Reason: SEVERE CONSITIPATION Lidocaine HCl (Xylocaine 1% Inj) 0.1 ml I-DERMAL PRN PRN PRN Reason: For IV start Stop: 06/27/18 09:46 Lidocaine HCl (Xylocaine 1% Inj) 10 ml INFILTRATN PRN PRN PRN Reason: For episiotomy repair Stop: 06/26/18 09:46 Mineral Oil (Muri-Lube Oil) 10 ml TOPICAL PRN PRN PRN Reason: PRN perineal massage Naloxone HCl (Narcan Inj) 0.1 mg IV.PUSH Q2M PRN PRN Reason: for opiate reversal Ondansetron HCl (Zofran Inj) 4 mg IV.PUSH Q6H PRN PRN Reason: NAUSEA OR VOMITING Last Admin: 06/24/18 10:00 Dose: 4 mg Ondansetron HCl (Zofran Odt) 4 mg PO Q6H PRN PRN Reason: NAUSEA OR VOMITING Senna/Docusate Sodium (Twila-Colace) 1 tab PO BID [facility] Last Admin: 06/25/18 21:23 Dose: 1 tab Sennosides (Senokot) 17.2 mg PO Q12H PRN PRN Reason: Moderate Constipation Simethicone (Mylicon Chew) 80 mg PO ONCE ONE Stop: 06/26/18 08:07 Sodium Chloride (Ns Flush) 2 ml IV.FLUSH BID [facility] Last Admin: 06/25/18 22:16 Dose: Not Given Sodium Chloride (Ns Flush) 2 ml IV.FLUSH PRN PRN PRN Reason: FLUSH AFTER USING IV ACCESS Sodium Chloride (Ns Flush) 2 ml IV.FLUSH BID [facility] Last Admin: 06/25/18 22:16 Dose: Not Given Sodium Chloride (Ns Flush) 2 ml IV.FLUSH PRN PRN PRN Reason: FLUSH AFTER USING IV ACCESS Witch Kimmy/Glycerin (Tucks Pads) 1 applicatio RECTAL QID PRN PRN Reason: HEMORRHOIDS Zolpidem Tartrate (Ambien) 5 mg PO HS PRN PRN Reason: SLEEP Assessment and Plan - Diagnosis (1) Vaginal delivery Code(s): O80 - Encounter for full-term uncomplicated delivery Status: Acute Plan: 27 y/o who is PPD# 2 s/p . -Continue routine care. -Percocet and Motrin PRN pain. -Encouraged OOB. Advised pelvic rest for 6 wks. -Will need a f/u appt. within 6 wks. -Re: ctrl, she would like to consider her options. Chest Pain -Monitor vitals and O2 saturations. -Gas-X and Mylanta if GERD related. -If unresolved with above medications or if low O2 saturation will do CTA pulm -D/c today, if CP resolved denverw Dr. Acosta
[2018-06-26] MEDS ORDERED: Aluminum/Magnesium/Simethacone Susp 30 ML UDC PO ONE (09:00)
[2018-06-26] MEDS ORDERED: Simethicone 80 MG Chew Tablet PO ONE (09:00)
[2018-06-26] MEDS: Senna/Docusate Sodium 8.6/50 MG Tablet PO SCH (09:01)
[2018-06-26] MEDS: Acetaminophen 325 MG Tablet PO PRN (09:02)
== END 2018-06-26 11:45 | disposition home or self-care (01) ==
LOC: HOBED 06:24 → H2E 09:57 → H1EA 16:37
PROVIDERS: ADMIT Obstetrics & Gynecology; ATTEND Obstetrics & Gynecology